=== PATIENT | female | born 1975 | race Caucasian/White ===

== ENCOUNTER → 2017-01-05 | Outpatient (CLI) | payer BC, OTHER ==
[~2017-01-05] MED LIST: IRON325 MG; LEXAPRO 10MG10 MG; LORTAB 5/500 501 TAB PO; MOTRIN 600600 MG/TAB PO
== END ==
LOC: MC.RAD 14:40
DX: Z12.31 Encounter for screening mammogram for malignant neoplasm of breast (principal)

== ENCOUNTER → 2017-01-12 | Outpatient (CLI) | payer BC, OTHER ==
[~2017-01-12] VITALS: Ht 175.3 cm; Wt 72.7 kg
[2017-01-12 13:18] VITALS: BP 107/57; PULSE 55
[2017-01-12 14:05] VITALS: BP 121/78; PULSE 50
== END ==
LOC: COL.RAD 12:52
DX: E04.1 Nontoxic single thyroid nodule (principal)
CPT/HCPCS: 13756

== ENCOUNTER → 2018-03-10 | Outpatient (CLI) | payer BC, OTHER | LOC: MC.RAD 13:34 | DX: Z12.31 Encounter for screening mammogram for malignant neoplasm of breast (principal); Z98.890 Other specified postprocedural states ==

== ENCOUNTER → 2018-09-25 | Outpatient (CLI) | payer BC, OTHER | LOC: BHSO 09:57 | DX: F41.0 Panic disorder [episodic paroxysmal anxiety] (principal) ==

== ENCOUNTER → 2018-10-25 | Outpatient (CLI) | payer BC, OTHER | LOC: BHSO 09:04 | DX: F41.0 Panic disorder [episodic paroxysmal anxiety] (principal) | CPT/HCPCS: G0463 ==

== ENCOUNTER → 2018-12-27 | Outpatient (CLI) | payer BC, OTHER | LOC: BHSO 09:03 | DX: F41.1 Generalized anxiety disorder (principal) | CPT/HCPCS: G0463 ==

== ENCOUNTER → 2019-05-09 | Outpatient (CLI) | payer BC, OTHER | LOC: MC.RAD 13:45 | DX: Z12.31 Encounter for screening mammogram for malignant neoplasm of breast (principal); Z90.13 Acquired absence of bilateral breasts and nipples ==

== ENCOUNTER → 2019-07-04 | Outpatient (CLI) | payer BC, OTHER | LOC: BHSO 08:57 | DX: F41.1 Generalized anxiety disorder (principal) | CPT/HCPCS: G0463 ==

== ENCOUNTER → 2019-12-20 | Outpatient (CLI) | payer BC, OTHER ==
[2019-12-20 11:23] LABS: STREP SCREEN NEGATIVE
== END ==
LOC: ZCOL.LAB 10:34
PROVIDERS: Otolaryngology
DX: J03.90 Acute tonsillitis, unspecified (principal)

== ENCOUNTER → 2019-12-31 | Outpatient (CLI) | payer BC, OTHER | LOC: ZCOL.LAB 21:59 | DX: Z20.828 Contact with and (suspected) exposure to other viral communicable diseases (principal) ==

== ENCOUNTER → 2020-03-21 | Outpatient (CLI) | payer BC, OTHER | LOC: BHSO 08:55 | DX: F41.1 Generalized anxiety disorder (principal) | CPT/HCPCS: G0463 ==

== ENCOUNTER → 2020-06-04 | Outpatient (CLI) | payer BC, OTHER | LOC: MC.RAD 11:06 | DX: Z12.31 Encounter for screening mammogram for malignant neoplasm of breast (principal) ==

== ENCOUNTER → 2021-08-03 | Outpatient (CLI) | payer BC | LOC: MC.RAD 08:15 | DX: Z12.31 Encounter for screening mammogram for malignant neoplasm of breast (principal) ==

== ENCOUNTER → 2022-10-20 | Outpatient (CLI) | payer BC | LOC: MC.RAD 10:58 | DX: Z12.31 Encounter for screening mammogram for malignant neoplasm of breast (principal) ==

== ENCOUNTER → 2024-01-25 | Outpatient (CLI) | payer BC | LOC: MC.RAD 15:00 | DX: Z12.31 Encounter for screening mammogram for malignant neoplasm of breast (principal) ==